=== PATIENT | female | born 1955 | race Hispanic/Latino ===

== ENCOUNTER 2017-09-27 07:19 | Day surgery (SDC) | payer BC ==
[2017-09-27] MEDS ORDERED: CLEOCIN 900 MG/50 mL 900 MG/50 ML BAG IV SCH (09:16)
[2017-09-27] MEDS ORDERED: NACL BACTERIOSTATIC INFILTRATI ONE (09:17)
[2017-09-27] MEDS ORDERED: DILAUDID ONE (10:12)
[2017-09-27] MEDS ORDERED: TYLENOL ONE (10:12)
[2017-09-27] MEDS ORDERED: VERSED ONE (10:13)
[2017-09-27] MEDS ORDERED: ZOFRAN ONE (10:13)
[2017-09-27] MEDS ORDERED: PEPCID IV ONE (10:13)
[2017-09-27] MEDS ORDERED: NACL 0.9% 1000 ML 1,000 ML ONE (10:14)
[2017-09-27] MEDS ORDERED: MARCAINE 0.25% INFILTRATI ONE ×2 (10:57→12:00)
[2017-09-27] MEDS ORDERED: XYLOCAINE 1%/ EPI 1:100,000 INFILTRATI ONE ×2 (10:57→11:47)
[2017-09-27] MEDS ORDERED: DIPRIVAN 10 MG/ML IV ONE (11:20)
[2017-09-27] MEDS ORDERED: ZEMURON IV ONE (11:20)
[2017-09-27] MEDS ORDERED: SUBLIMAZE ONE (11:20)
[2017-09-27] MEDS ORDERED: QUELICIN ONE (11:39)
[2017-09-27] MEDS ORDERED: ePHEDrine 50 MG/5 ML-0.9% NACL IV ONE (11:51)
--- NOTE | 2017-09-27 12:16 | Short Stay Summary ---
Short Stay Documentation - Allergies and Medications Current Medications: Allergies Penicillins Allergy (Verified 09/20/17 09:45) Unknown WAS TOLD CHILD THAT SHE WAS ALLERGIC- UNKNOWN REACTION Home Medications Medication Instructions Recorded Confirmed Last Taken Type Aspirin [Lo-Dose Aspirin EC] 81 mg PO DAILY 09/20/17 09/27/17 5 Days Ago History ~09/22/17 Biotin 1 mg PO DAILY 09/20/17 09/20/17 09/26/17 History Cholecalciferol (Vitamin D3) 10,000 unit PO DAILY 09/20/17 09/20/17 09/26/17 History [Vitamin D3 10,000 unit] Cyanocobalamin (Vitamin B-12) 2,500 mcg PO DAILY 09/20/17 09/20/17 09/26/17 History [Vitamin B12] Diltiazem HCl [Diltiazem ER] 360 mg PO DAILY 09/20/17 09/20/17 09/27/17 06:00 History Fenofibrate 160 mg PO DAILY 09/20/17 09/20/17 09/27/17 06:00 History Furosemide [Lasix TAB] 40 mg PO QDAY 09/20/17 09/20/17 09/26/17 History Gabapentin [Neurontin] 400 mg PO TID 09/20/17 09/20/17 09/26/17 History LORazepam [Ativan] 0.5 mg PO Q6H PRN 09/20/17 09/20/17 09/26/17 History Liraglutide [Victoza 2-Tacho] 1.8 mg SQ QDAY 09/20/17 09/20/17 09/26/17 History Losartan [Cozaar] 50 mg PO QDAY 09/20/17 09/20/17 09/27/17 06:00 History Metformin HCl [Glucophage] 1,000 mg PO BID 09/20/17 09/20/17 Unknown History Multivit-Min/FA/Lycopen/Lutein 1 each PO DAILY 09/20/17 09/20/17 09/26/17 History [Centrum Silver Tablet] Sertraline [Zoloft] 25 mg PO QDAY 09/20/17 09/27/17 09/27/17 06:00 History Turmeric Root Extract [Turmeric] 500 mg PO DAILY 09/20/17 09/27/17 3 Days Ago History ~09/24/17 traZODone [Desyrel] 200 mg PO QHS 09/20/17 09/20/17 09/26/17 History Active Medications Clindamycin HCl (Cleocin 900 Mg/50 Ml) 900 mg in 50 mls @ 100 mls/hr IV PREOP RESHMA; Protocol Stop: 09/27/17 23:59 Short Stay Discharge Plan Activity: advance as tolerated Weight Bearing Status: Full Weight Bearing Diet: regular Wound: keep clean and dry, per your surgeon's advice Durable Medical Equipment Needed Upon Discharge: Cane Additional Instructions: follow DC instruction sheet pain meds prn ice pacs Follow up with: PRIMARY MD ERLIN [Primary Care Provider] - 7 Days CELSA QUEZADA MD [Staff Physician] - 14 Days
--- NOTE | 2017-09-27 12:21 | Anesthesia Day of Surgery ---
Anesthesia Day of Surgery - Day of Surgery Patient Examined: Yes Patient H&P Reviewed: Yes Patient is NPO: Yes
[2017-09-27] MEDS ORDERED: ZOFRAN IV PRN (12:23)
[2017-09-27] MEDS ORDERED: DEMEROL IV PRN (12:23)
[2017-09-27] MEDS ORDERED: DILAUDID IV PRN (12:23)
[2017-09-27] MEDS ORDERED: TORADOL IV PRN (12:23)
--- NOTE | 2017-09-27 12:23 | Anesthesia Consultation ---
Anesthesia Consult and Med Hx Date of service: 09/27/17 - Airway Anesthetic Teeth Evaluation: Poor ROM Head & Neck: Adequate Mental/Hyoid Distance: Adequate Mallampati Class: Class III Intubation Access Assessment: Possibly Difficult - Pulmonary Exam CTA: Yes - Cardiac Exam Cardiac Exam: RRR - Pre-Operative Health Status ASA Pre-Surgery Classification: ASA3 Proposed Anesthetic Plan: General - Pulmonary Hx Smoking: Yes (STOPPED X 3 YRS- 1 PPD X 30 YRS) Hx Sleep Apnea: Yes (DX SLEEP APNEA , NO CPAP USE.) - Cardiovascular System Hx Hypertension: Yes (X 10 YRS) Hx Coronary Artery Disease: Yes (MILD BLOCKAGE-NO TX AT PRESENT) - Central Nervous System CVA: No (TIA 20 YRS AGO- NO DEFICITS) - Other Systems Hx Alcohol Use: Yes (STOPPED X 10 YRS) Hx Substance Use: Yes (HX VICODAN ADDICTION- CLEAN X 8 YRS) Hx Cancer: No
[2017-09-27] MEDS ORDERED: BENADRYL ONE (12:24)
--- NOTE | 2017-09-27 13:15 | Operative Report ---
SURGEON: Davey Priest MD. ELECTRONEURODIAGNOSTIC TECHNOLOGIST: COMPLICATIONS: None. PREOPERATIVE DIAGNOSES: 1. Recurrent effusion, synovitis of the right knee joint. 2. Painful right knee joint. 3. Osteoarthritis, right knee joint. POSTOPERATIVE DIAGNOSES: 1. Complex tear, medial meniscus, right knee joint. 2. Synovial hypertrophy and synovial proliferation, right knee joint. 3. Effusion, right knee joint. 4. Osteoarthritis of the right knee joint of moderate nature. BRIEF HISTORY: The patient had painful and recurrent swelling in the knee, had failed conservative treatment, opted for the surgical intervention. Risk and benefit discussed, informed consent obtained, brought to the hospital for the below procedure. PROCEDURES PERFORMED: 1. Right knee arthroscopy. 2. Arthroscopic partial medial meniscectomy. 3. Arthroscopic debridement and chondroplasty. 4. Arthroscopic partial synovectomy. DETAILS OF THE OPERATIVE REPORT: The patient was taken to the operating, smooth and general endotracheal anesthesia, all the bony prominence were carefully padded, placed supine on the operating table. Thigh tourniquet was placed. The patient was given 900 mg of clindamycin half an hour before the procedure. Right knee, right lower extremity prepped and draped in sterile fashion. Portal sites were infiltrated with 1% lidocaine with epinephrine. High lateral portal was created. Arthroscope introduced. Diagnostic arthroscopy was performed. Findings noted below. Under direct visualization, direct medial portal was created using synovial resector and biters, partial medial meniscectomy was performed with a complex tear of the medial meniscus, which was noticed. The chronic partial tear of the ACL was noticed was stable. PCL was intact. The lateral compartment had no meniscus tear. Synovial hypertrophy and synovial proliferation was present and partial synovectomy was performed. When the partial medial meniscectomy was performed stable meniscal rim was achieved. Once necessary debridement, chondroplasty of the patellofemoral area and the medial compartment was performed for torn cartilage tissue and partial synovectomy and partial meniscectomy performed. Fluid was evacuated. Necessary pictures were taken from the procedure and arthroscope removed and portal sites closed with 3-0 nylon interrupted sutures. Portal sites were then infiltrated with 3 mL of Marcaine plain, 0.25% plain, 3 mL in each portal. Dressing was done with Xeroform, 4 x 4s, ABD, cast padding, Yordy wrap. Arthroscopic finding, signs of synovitis, minimal synovial proliferation present. Patella grade 4 osteoarthritic changes in the lateral patellofemoral first set and up to the median ridge 80% of it. Grade 3 changes in the medial facet, mostly 70-80% of the patella. Trochlea is about grade 3 changes throughout. Medial femoral condyle, grade 4 osteoarthritic changes in about 50-60%. Medial tibial plateau was about grade 4 osteoarthritic changes about 30% in about grade 3 about 40-50%. ACL and PCL intact for chronic partial tear. ACL was stable on examination. Lateral femoral condyle pristine, lateral tibial plateau, grade 2 changes throughout. Lateral meniscus pristine. Fat pad normal. Synovial hypertrophy is synovium. Synovial hypertrophy and synovial proliferation present. The patient tolerated the procedure very well. She was shifted to recovery room in stable condition. Sponge and needle count was correct. JOB# [id number] KASSI/JAMAAL
[2017-09-27 14:38] LABS: Total Cells Counted 100 /mm3
[2017-09-27 19:55] VITALS: BP 104/57
== END 2017-09-27 14:35 | disposition home or self-care (01) ==
LOC: OR 07:19
PROVIDERS: ATTEND Orthopaedic Surgery
DX: S83.231A Complex tear of medial meniscus, current injury, right knee, initial encounter (principal); S83.511A Sprain of anterior cruciate ligament of right knee, initial encounter; M65.9 Synovitis and tenosynovitis, unspecified; M17.11 Unilateral primary osteoarthritis, right knee; M25.461 Effusion, right knee; I25.10 Atherosclerotic heart disease of native coronary artery without angina pectoris; I10 Essential (primary) hypertension; G47.30 Sleep apnea, unspecified; F17.210 Nicotine dependence, cigarettes, uncomplicated; Z88.0 Allergy status to penicillin; Z86.73 Personal history of transient ischemic attack (TIA), and cerebral infarction without residual deficits; X58.XXXA Exposure to other specified factors, initial encounter; Y93.89 Activity, other specified; Y92.89 Other specified places as the place of occurrence of the external cause; Y99.8 Other external cause status; Z79.82 Long term (current) use of aspirin; Z79.899 Other long term (current) drug therapy
CPT/HCPCS: 29881; 82962; 85048; 87075; 87116; 89051; J0330; J1170; J2250; J2405; J2704; J3010; J7030; J1200